=== PATIENT | female | born 1970 ===

== ENCOUNTER 2021-08-30 15:01 | Emergency (ER) | payer BC, OTHER ==
--- NOTE | 2021-08-30 15:31 | EDM.PDOC ---
ED HPI GENERAL MEDICAL PROBLEM - General Chief Complaint: Lower Extremity Injury/Pain Stated Complaint: LT ANKEL PAIN Time Seen by Provider: 08/30/21 15:03 Source of Information: Reports: Patient History Limitations: Reports: No Limitations - History of Present Illness INITIAL COMMENTS - FREE TEXT/NARRATIVE: HISTORY AND PHYSICAL: History of present illness: Patient is a 51-year-old female who presents emergency room today with concern of left ankle injury that occurred last night. Patient states that she was out at the bar and had been drinking. Patient states that there was a step down floor at the bar but states that it was not steps. Patient states that she did not realize there was a step down and twisted her left ankle and felt a popping sensation. Patient states that she did fall to her knees and hands and states that she did not hit her head or lose consciousness. Patient states that she immediately did walk on it and has been walking on it since but does have pain with doing so. Patient denies any other injury or pain at this time. Patient denies fever, chills, chest pain, shortness of breath, or cough. Denies headache, neck stiff ness, change in vision, syncope, or near syncope. Denies nausea, vomiting, abdominal pain, diarrhea, constipation, or dysuria. Has not noted any blood in urine or stool. Patient has been eating and drinking appropriately. Review of systems: As per history of present illness and below otherwise all systems reviewed and negative. Past medical history: As per history of present illness and as reviewed below otherwise noncontributory. Surgical history: As per history of present illness and as reviewed below otherwise noncontributory. Social history: See social history for further information Family history: As per history of present illness and as reviewed below otherwise noncontributory. Physical exam: General: Patient is alert, oriented, and in no acute distress. Patient sitting comfortably on exam table. Vitals stable and reviewed by me. HEENT: Atraumatic, normocephalic, pupils equal and reactive bilaterally, negative for conjunctival pallor or scleral icterus, mucous membranes moist, throat clear, neck supple, nontender, trachea midline. No drooling or trismus noted. No meningeal signs. No hot potato voice noted. Lungs: Clear to auscultation, breath sounds equal bilaterally, chest nontender. Heart: S1S2, regular rate and rhythm without overt murmur Abdomen: Soft, nondistended, nontender. Negative for masses or hepatosplenomegaly. Negative for costovertebral tenderness. Pelvis: Stable nontender. Genitourinary: Deferred. Rectal: Deferred. Skin: Intact, warm, dry. No lesions or rashes noted. Extremities: The left ankle is moderate to severely edematous with ecchymosis noted over the medial malleolus of the left ankle. Patient has limited range of motion of the left ankle due to pain. Dorsalis pedis and posterior tibial pulses are intact via Doppler. All compartments are soft of the left lower extremity. Patient does have full range of motion of the remainder left lower extremity. Intact sensation to light and deep touch of the complete left lower extremity. Atraumatic, negative for cords or calf pain. Neurovascular unremarkable. Neuro: Awake, alert, oriented. Cranial nerves II through XII unremarkable. Cerebellum unremarkable. Motor and sensory unremarkable throughout. Exam nonfocal. Medical Decision Making: Signs and symptoms that were prompt return to the ED thoroughly discussed with patient. Discussed importance for follow-up with a primary care provider. Voices understanding and is agreeable to plan of care. Denies any further questions or concerns at this time. Diagnostics: Foot and ankle x-ray, left Therapeutics: Walking boot and crutches Prescription: None Impression: Left ankle injury/sprain Plan: 1. Rest, ice, elevate the affected extremity. You can apply ice 15 minutes on, 15 minutes off. Use the boot and crutches until follow-up with a primary care provider as discussed. 2. Tylenol and/or Ibuprofen as directed for pain management or discomfort. 3. Follow up with the primary care provider as discussed. Return to the ED as needed and as discussed. Definitive disposition and diagnosis as appropriate pending reevaluation and review of above. Left Ankle Pain Score (Numeric/FACES): 9 - Related Data Allergies Allergy/AdvReac Type Severity Reaction Status Date / Time Penicillins Allergy Other Verified 08/30/21 15:13 Home Meds: Home Meds . [No Known Home Meds] 08/30/21 [History] Past Medical History - Past Health History Medical/Surgical History: Denies Medical/Surgical History Social & Family History - Tobacco Use Tobacco Use Status *Q: Never Tobacco User - Recreational Drug Use Recreational Drug Use: No Review of Systems - Review of Systems Review Of Systems: Comprehensive ROS is negative, except as noted in HPI. ED EXAM, GENERAL - Physical Exam Exam: See Below (see dictation) Course - Vital Signs Last Recorded V/S: Last Vital Signs Temp 97.1 F 08/30/21 15:14 Pulse 73 08/30/21 15:14 Resp 16 08/30/21 15:14 BP 142/64 H 08/30/21 15:14 Pulse Ox 95 08/30/21 15:14 - Orders/Labs/Meds Orders: Active Orders 24 hr Category Date Time Status DME for Discharge [COMM] Stat Oth 08/30/21 16:31 Ordered Departure - Departure Time of Disposition: 16:31 Disposition: Home, Self-Care 01 Clinical Impression: Ankle sprain, Left ankle injury - Discharge Information Referrals: Bryan Chicas DO [Primary Care Provider] - Forms: ED Department Discharge Additional Instructions: The following information is given to patients seen in the emergency department who are being discharged to home. This information is to outline your options for follow-up care. We provide all patients seen in our emergency department with a follow-up referral. The need for follow-up, as well as the timing and circumstances, are variable depending upon the specifics of your emergency department visit. If you don't have a primary care physician on staff, we will provide you with a referral. We always advise you to contact your personal physician following an emergency department visit to inform them of the circumstance of the visit and for follow-up with them and/or the need for any referrals to a consulting specialist. The emergency department will also refer you to a specialist when appropriate. This referral assures that you have the opportunity for follow-up care with a specialist. All of these measure are taken in an effort to provide you with optimal care, which includes your follow-up. Under all circumstances we always encourage you to contact your private physician who remains a resource for coordinating your care. When calling for follow-up care, please make the office aware that this follow-up is from your recent emergency room visit. If for any reason you are refused follow-up, please contact the [facility] at and asked to speak to the emergency department charge nurse. [facility] [address] [place] [address] [id number] [facility] [address] [place] [id number] 1. Rest, ice, elevate the affected extremity. You can apply ice 15 minutes on, 15 minutes off. Use the boot and crutches until follow-up with a primary care provider as discussed. 2. Tylenol and/or Ibuprofen as directed for pain management or discomfort. 3. Follow up with the primary care provider as discussed. Return to the ED as needed and as discussed. Sepsis Event Note (ED) - Evaluation Sepsis Screening Result: No Definite Risk - Focused Exam Vital Signs: Vital Signs Temp Pulse Resp BP Pulse Ox 08/30/21 15:14 97.1 F 73 16 142/64 H 95 - My Orders Last 24 Hours: My Active Orders 08/30/21 16:31 DME for Discharge [COMM] Stat - Assessment/Plan Last 24 Hours: My Active Orders 08/30/21 16:31 DME for Discharge [COMM] Stat
--- NOTE | 2021-08-30 16:26 | CR ---
INDICATION: Pain. TECHNIQUE: Two views of the left foot. COMPARISON: None. IMPRESSION: No acute fracture is identified. No subluxation or dislocation. Dictated by Vaughn Herrera MD @ 08/30/2021 4:24:41 PM Dictated by: Vaughn Herrera MD @ 08/30/2021 16:24:50 (Electronically Signed)
--- NOTE | 2021-08-30 16:28 | CR ---
INDICATION: Pain. TECHNIQUE: Three views. COMPARISON: None. IMPRESSION: Soft tissue swelling is noted about the ankle, particularly medially. There are a few well corticated ossicles adjacent to the medial malleolus, which are likely related to remote trauma. No definite acute fracture is seen. Ankle mortise is symmetric. Dictated by Vaughn Herrera MD @ 08/30/2021 4:26:40 PM Dictated by: Vaughn Herrera MD @ 08/30/2021 16:26:46 (Electronically Signed)
== END 2021-08-30 17:12 | disposition home or self-care (01) ==
LOC: MW.ED 15:01
DX: S93.402A Sprain of unspecified ligament of left ankle, initial encounter (principal); Z88.0 Allergy status to penicillin; X50.1XXA Overexertion from prolonged static or awkward postures, initial encounter
CPT/HCPCS: 73610-26-LT; 73610-LT; 73620-26-LT; 73620-LT; 99283-25